=== PATIENT | female | born 1975 | race Caucasian/White ===

== ENCOUNTER 2017-09-20 11:25 | Emergency (ER) | payer OTHER ==
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
[2017-09-20 12:20] VITALS: BP 121/66
== END 2017-09-20 12:55 | disposition home or self-care (01) ==
LOC: UCCORT 11:25
DX: R51 Headache (principal); M62.838 Other muscle spasm; F17.210 Nicotine dependence, cigarettes, uncomplicated
CPT/HCPCS: 99212; G0463

== ENCOUNTER 2017-10-14 17:32 | Emergency (ER) | payer OTHER ==
[2017-10-14 20:07] VITALS: BP 109/64
[2017-10-14] MEDS ORDERED: Sulfamethox/Trimethoprim DS 800/160* TAB PO ONE (20:27)
[2017-10-14] MEDS ORDERED: Phenazopyridine TAB* 100 MG PO ONE (20:28)
--- NOTE | 2017-10-14 20:40 | UC ---
Complaint Female HPI - HPI Summary HPI Summary: TWO DAYS OF URINARY URGENCY, FREQUENCY, LOW BACK PAIN. NO ABDOMINAL PAIN. NO FEVER. - History Of Current Complaint Chief Complaint: UCGU Stated Complaint: URINARY Time Seen by Provider: 10/14/17 20:00 Hx Obtained From: Patient Hx Last Menstrual Period: 10/14/17 Onset/Duration: Gradual Onset, Lasting Days, Still Present Timing: Lasting Days Severity Initially: Mild Severity Currently: Moderate Character: Dull, Burning Aggravating Factor(s): Urination Associated Signs And Symptoms: Positive: Back Pain. Negative: Fever, Vaginal Bleeding/Discharge, Vaginal Discharge, Nausea, Vomiting(# Of Episodes =), Genital Swelling - Risk Factors Ectopic Risk Factor: Negative Ovarian Torsion Risk Factor: Negative - Allergies/Home Medications Allergies/Adverse Reactions: Allergies Allergy/AdvReac Type Severity Reaction Status Date / Time No Known Allergies Allergy Verified 10/14/17 20:07 Home Medications: Home Medications Acetaminophen [Acetaminophen Extra Stren] 1,000 mg PO PRN 10/14/17 [History] PMH/Surg Hx/FS Hx/Imm Hx Previously Healthy: Yes - Surgical History Surgical History: Yes Surgery Procedure, Year, and Place: LEAP proceduce X 2. T/A - Family History Known Family History: Positive: Cardiac Disease, Diabetes - Social History Occupation: Employed Full-time Lives: With Family Alcohol Use: None Substance Use Type: None Smoking Status (MU): Heavy Every Day Tobacco Smoker Type: Cigarettes Amount Used/How Often: 1/2 ppd Length of Time of Smoking/Using Tobacco: since age 8 Have You Smoked in the Last Year: Yes Cessation Counseling: Patient Advised to Stop - Immunization History Most Recent Influenza Vaccination: Not the Season Review of Systems Constitutional: Negative Skin: Negative Eyes: Negative ENT: Negative Respiratory: Negative Cardiovascular: Negative Gastrointestinal: Negative Genitourinary: Dysuria, Frequency, Urgency Motor: Negative Neurovascular: Negative Musculoskeletal: Negative Neurological: Negative Psychological: Negative Is Patient Immunocompromised?: No All Other Systems Reviewed And Are Negative: Yes Physical Exam Triage Information Reviewed: Yes Appearance: Well-Appearing, No Pain Distress, Well-Nourished Vital Signs: Initial Vital Signs Temp 97.8 F 10/14/17 19:59 Pulse 75 10/14/17 19:59 Resp 16 10/14/17 19:59 BP 109/64 10/14/17 19:59 Pulse Ox 99 10/14/17 19:59 Vital Signs Reviewed: Yes Eye Exam: Normal ENT Exam: Normal ENT: Positive: Normal ENT inspection, Hearing grossly normal, Pharynx normal Dental Exam: Normal Neck exam: Normal Neck: Positive: Supple, Nontender, No Lymphadenopathy Respiratory Exam: Normal Respiratory: Positive: Chest non-tender, Lungs clear, Normal breath sounds, No respiratory distress, No accessory muscle use Cardiovascular Exam: Normal Cardiovascular: Positive: RRR, No Murmur, Pulses Normal Abdomen Description: Positive: Nontender, No Organomegaly, CVA Tenderness (L) Musculoskeletal Exam: Normal Neurological Exam: Normal Psychological Exam: Normal Skin Exam: Normal Complaint Female Dx - Course Course Of Treatment: TRACE LEUKS, BUT TREATED FOR UTI BASED ON PATINET PRESENTATION. HOWEVER, PATIENT ADVISED TO SEEK IMMEDIATE EVALUATION AT EMERGENCY DEPARTMENT IF SYMPTOMS CONTINUE, IF BACK PAIN WORSENS, OR IF NEW SYMPTOMS DEVELOP - Differential Dx/Diagnosis Differential Diagnosis/HQI/PQRI: Renal Colic, Sexually Transmitted Disease, Ureteral Stone, Urinary Tract Infection Provider Diagnoses: URINARY TRACT INFECTION Discharge - Discharge Plan Condition: Stable Disposition: HOME Prescriptions: Phenazopyridine TAB* [Pyridium 100 mg TAB*] 100 mg PO TID PRN #12 tab PRN Reason: Pain Sulfamethox/Trimethoprim DS* [Bactrim DS 800/160 TAB*] 1 tab PO BID #10 tab Patient Education Materials: Urinary Tract Infection in Women (ED) Referrals: Luann Sun MD [Primary Care Provider] -
== END 2017-10-14 20:39 | disposition home or self-care (01) ==
LOC: UCCORT 17:32
DX: N39.0 Urinary tract infection, site not specified (principal); F17.210 Nicotine dependence, cigarettes, uncomplicated
CPT/HCPCS: 81003; 87086; 99212; A9270-GY; G0463

== ENCOUNTER 2017-11-12 14:36 | Emergency (ER) | payer OTHER ==
[2017-11-12 14:59] VITALS: BP 121/69
--- NOTE | 2017-11-12 15:10 | UC ---
Knee Pain HPI - HPI Summary HPI Summary: Patient has had swelling and pain in the left knee for the past 2 days. Unknown LESLIE, but pain with movment and at rest. - History of Current Complaint Chief Complaint: UCLowerExtremity Stated Complaint: LEFT KNEE PAIN Time Seen by Provider: 11/12/17 15:01 Hx Obtained From: Patient Hx Last Menstrual Period: 10/26/17 ?: No Onset/Duration: Sudden Onset, Lasting Days Severity Initially: Moderate Severity Currently: Moderate Character: Aching, Stiffness Aggravating Factor(s): Movement, Weight Bearing, Stairs Alleviating Factor(s): Nothing Associated Signs And Symptoms: Positive: Swelling - Allergies/Home Medications Allergies/Adverse Reactions: Allergies Allergy/AdvReac Type Severity Reaction Status Date / Time No Known Allergies Allergy Verified 11/12/17 14:58 PMH/Surg Hx/FS Hx/Imm Hx Previously Healthy: Yes - Surgical History Surgical History: Yes Surgery Procedure, Year, and Place: LEAP proceduce X 2. T/A - Family History Known Family History: Positive: Cardiac Disease, Diabetes - Social History Alcohol Use: Rare Substance Use Type: None Smoking Status (MU): Heavy Every Day Tobacco Smoker Type: Cigarettes Amount Used/How Often: 1/2 ppd Length of Time of Smoking/Using Tobacco: since age 8 Have You Smoked in the Last Year: Yes - Immunization History Most Recent Influenza Vaccination: Not the 2016/2017 Season Review of Systems Constitutional: Negative Skin: Negative Eyes: Negative ENT: Negative Respiratory: Negative Cardiovascular: Negative Gastrointestinal: Negative Genitourinary: Negative Motor: Negative Neurovascular: Negative Musculoskeletal: Arthralgia, Decreased ROM, Edema, Myalgia Neurological: Negative Psychological: Negative Is Patient Immunocompromised?: No All Other Systems Reviewed And Are Negative: Yes Physical Exam Triage Information Reviewed: Yes Appearance: Well-Appearing, Well-Nourished, Pain Distress Vital Signs: Initial Vital Signs Temp 100.3 F 11/12/17 14:48 Pulse 78 11/12/17 14:48 Resp 15 11/12/17 14:48 BP 121/69 11/12/17 14:48 Pulse Ox 99 11/12/17 14:48 Vital Signs Reviewed: Yes Eye Exam: Normal Eyes: Positive: Conjunctiva Clear ENT Exam: Normal Dental Exam: Normal Neck exam: Normal Respiratory Exam: Normal Respiratory: Positive: Chest non-tender, Lungs clear, Normal breath sounds Cardiovascular Exam: Normal Cardiovascular: Positive: RRR, No Murmur, Pulses Normal Abdominal Exam: Normal Abdomen Description: Positive: Nontender, No Organomegaly, Soft Bowel Sounds: Positive: Present Musculoskeletal Exam: Normal Neurological Exam: Normal Psychological Exam: Normal Skin Exam: Normal Knee Pain Course/Dx - Course Course Of Treatment: hx obtained, exam performed meds reviewed, xray obtained. - Differential Dx/Diagnosis Differential Diagnosis/HQI/PQRI: Contusion, Gout, Internal Derangement Of Knee, Patellofemoral Syndrome, Sprain, Strain Provider Diagnoses: knee pain and swelling, left Discharge - Discharge Plan Condition: Stable Disposition: HOME Patient Education Materials: Knee Pain (ED) Referrals: Luann Sun MD [Primary Care Provider] - Akash Chu MD [Medical Doctor] - Additional Instructions: 1. take the anti inflammatories as prescribed. 2. Use the maci wrap and keep your activities pain free for the next 5-7 days, if not improving I advise follow up with an orthopedic for further evaluation.
--- NOTE | 2017-11-12 15:44 | RAD ---
INDICATION: Left knee pain. TECHNIQUE: 4 views of the left knee were obtained. FINDINGS: The bones are in normal alignment. No joint effusion or fracture is seen. Joint spaces appear maintained. IMPRESSION: NO EVIDENCE FOR FRACTURE.
== END 2017-11-12 15:49 | disposition home or self-care (01) ==
LOC: UCCORT 14:36
DX: M25.562 Pain in left knee (principal); R22.42 Localized swelling, mass and lump, left lower limb; F17.210 Nicotine dependence, cigarettes, uncomplicated
CPT/HCPCS: 99212; G0463

== ENCOUNTER 2018-03-26 10:59 | Emergency (ER) | payer MEDICAID, OTHER ==
[2018-03-26 11:47] VITALS: BP 104/62
--- NOTE | 2018-03-26 12:14 | UC ---
[facility] Dental HPI - HPI Summary HPI Summary: 42 y/o female presents to the urgent care c/o RT side upper and lower toothache for the past 3 weeks. Pt reports she is currently schedule for 2 root canals in April/2018. Pt states her dentist was going to do it about 3 weeks ago, however the re-schedule her appt. Pain is 9/10 and worsen when she eats for the past 2 days. Pt has taken Advil PO to alleviate symptoms. Pt denies fever, DUMONT, trismus, SOB, chest pain, abdominal pain, N/V/D - History of Current Complaint Chief Complaint: UCDentalProblem Stated Complaint: DENTAL COMP Time Seen by Provider: 03/26/18 12:09 Hx Obtained From: Patient Hx Last Menstrual Period: states has been bleeding for 6 weeks. ?: No Onset/Duration: Gradual Onset, Lasting Weeks - 3 weeks, Still Present, Worse Since - 2 days Severity: Moderate Pain Intensity: 9 Pain Scale Used: 0-10 Numeric Aggravating Factor(s): Chewing Alleviating Factor(s): OTC Meds Related History: Previous Dental Care on Same Tooth, Swelling - Allergies/Home Medications Allergies/Adverse Reactions: Allergies Allergy/AdvReac Type Severity Reaction Status Date / Time No Known Allergies Allergy Verified 03/26/18 11:44 PMH/Surg Hx/FS Hx/Imm Hx Previously Healthy: Yes - Pt denies PMHX - Surgical History Surgical History: Yes Surgery Procedure, Year, and Place: LEAP proceduce X 2. T/A - Family History Known Family History: Positive: Cardiac Disease, Diabetes - Social History Occupation: Employed Full-time Lives: With Family Alcohol Use: None Substance Use Type: None Smoking Status (MU): Heavy Every Day Tobacco Smoker Type: Cigarettes Amount Used/How Often: 1/2 ppd Length of Time of Smoking/Using Tobacco: since age 8 Have You Smoked in the Last Year: Yes - Immunization History Most Recent Influenza Vaccination: Not the 2017/2017 Season Review of Systems Constitutional: Negative Skin: Negative Eyes: Negative ENT: Dental Pain - RT upper and lower jaw pain Respiratory: Negative Cardiovascular: Negative Gastrointestinal: Negative Genitourinary: Negative Motor: Negative Neurovascular: Negative Musculoskeletal: Negative Neurological: Negative Psychological: Negative Is Patient Immunocompromised?: No All Other Systems Reviewed And Are Negative: Yes Physical Exam - Summary Physical Exam Summary: Vital Signs Reviewed: Yes General: well developed. well nourished female sitting in the examining table w/ o any apparent distress Eyes: Positive: Conjunctiva Clear - PERRLA, EOMI, fundi grossly normal ENT: Positive: Normal ENT inspection, Hearing grossly normal, Pharyngeal erythema, TMs normal, Uvula midline. Negative: Tonsillar swelling, Tonsillar exudate, Trismus Dental: Positive: Percussion Tenderness @ - molar 3 and 30, Gross Decay/Caries @ - molar 3,and 30 Abscess @ - molar 3, Cervical Lymphadenopathy - B/L anterior , Neck: Positive: Supple, Nontender Respiratory: Positive: Chest non-tender, Lungs clear, Normal breath sounds, No respiratory distress Cardiovascular: Positive: RRR, No Murmur, Pulses Normal, Brisk Capillary Refill Abdomen Description: Positive: Nontender, No Organomegaly, Soft. Negative: CVA Tenderness (R), CVA Tenderness (L) Bowel Sounds: Positive: Present Musculoskeletal: Positive: Strength Intact, ROM Intact, No Edema Neurological Exam: Normal Psychological Exam: Normal Skin Exam: Normal Triage Information Reviewed: Yes Vital Signs: Initial Vital Signs Temp 98 F 03/26/18 11:40 Pulse 54 03/26/18 11:40 Resp 17 03/26/18 11:40 BP 104/62 03/26/18 11:40 Pulse Ox 100 03/26/18 11:40 Dental Complaint Course/Dx - Course Course Of Treatment: 42 y/o female presents to the urgent care c/o RT side upper and lower toothache for the past 3 weeks. Pt reports she is currently schedule for 2 root canals in April/2018. Pt states her dentist was going to do it about 3 weeks ago, however the re-schedule her appt. Pain is 9/10 and worsen when she eats for the past 2 days. Pt has taken Advil PO to alleviate symptoms. Pt denies fever, DUMONT, trismus, SOB, chest pain, abdominal pain, N/V/D. Hx obtained. Pt w/ Percussion Tenderness @ - molar 3 and 30, Gross Decay/Caries @ - molar 3,and 30, mild Abscess @ - molar 3 on examination. Pt given viscous Lidocaine and Toradol IM inj at the clinic to alleviate symptoms. pt tolerated well IM inj and Pain decrease Pt Rx Amoxicillin PO and Naproxen PO for pain. Pt strongly advised to f/u with Dentist as soon as possible further evaluation and treatment. Pt understood and agreed with plan of care. Left the clinic ambulating. - Differential Dx/Diagnosis Differential Diagnosis/Dx: Dental Abscess, Dental Caries, Fractured Tooth, Gingivitis, Odontogenic Pain, Peridontic Disease Provider Diagnoses: 1- Dental abscess and molar 3. 2- Dental pain at molar 3 and 30 Discharge - Sign-Out/Discharge Documenting (check all that apply): Discharge/Admit/Transfer - D/C home - Discharge Plan Condition: Stable Disposition: HOME Prescriptions: Amoxicillin PO (*) [Amoxicillin 500 MG CAP*] 500 mg PO TID #30 cap Naproxen TAB* [Naprosyn 250 mg TAB*] 250 mg PO Q8H PRN #30 tab PRN Reason: dental pain Patient Education Materials: Dental Abscess (ED), Toothache (ED) Forms: *Work Release Referrals: Luann Sun MD [Primary Care Provider] - 2 Days Additional Instructions: 1-Please take full course of antibiotic to avoid resistance. 2- Take Naproxen as instructed after meals to alleviate pain and swelling. 3- F/u with your Dentist as soon as possible for further treatment. 4- If symptoms do not improve or worsen please return to the urgent care or f/u with your PCP for further evaluation and treatment - Billing Disposition and Condition Condition: STABLE Disposition: HOME
[2018-03-26] MEDS ORDERED: Ketorolac INJ* 30 MG/ML 1 ML VIAL IM ONE (12:22)
[2018-03-26] MEDS ORDERED: Lidocaine 2% VISCOUS* 15 ML UDC SWISH SPIT ONE (12:23)
== END 2018-03-26 12:41 | disposition home or self-care (01) ==
LOC: UCCORT 10:59
DX: K04.7 Periapical abscess without sinus (principal); F17.210 Nicotine dependence, cigarettes, uncomplicated
CPT/HCPCS: 96372; 99212; G0463; J1885

== ENCOUNTER 2018-04-25 14:20 | Emergency (ER) | payer MEDICAID ==
[2018-04-25 15:07] VITALS: BP 94/53
--- NOTE | 2018-04-25 15:18 | UC ---
Dental HPI - HPI Summary HPI Summary: Pt c/o worsening dental pain right upper molar and right lower molar. Pt has long history of dental caries and abscess and is scheduled to begin root canal procedure on 04/27 at [facility] - History of Current Complaint Hx Obtained From: Patient Hx Last Menstrual Period: 04/07/18 ?: No Onset/Duration: Gradual Onset, Lasting Days, Lasting Weeks, Still Present, Worse Since - onset Severity: Severe Pain Intensity: 8 Aggravating Factor(s): Heat, Cold, Chewing Alleviating Factor(s): Nothing Related History: Previous Dental Care on Same Tooth <Lizeth Rojas NP - Last Filed: 04/25/18 15:38> <Hood Cain - Last Filed: 04/25/18 18:27> - History of Current Complaint Chief Complaint: UCDentalProblem Stated Complaint: DENTAL Time Seen by Provider: 04/25/18 14:55 - Allergies/Home Medications Allergies/Adverse Reactions: Allergies Allergy/AdvReac Type Severity Reaction Status Date / Time No Known Allergies Allergy Verified 04/25/18 14:59 Home Medications: Home Medications Ibuprofen TAB* [Advil TAB*] 1,000 mg PO Q6H PRN 04/25/18 [History Confirmed ] PMH/Surg Hx/FS Hx/Imm Hx Previously Healthy: Yes - Surgical History Surgical History: Yes Surgery Procedure, Year, and Place: LEAP proceduce X 2. T/A - Family History Known Family History: Positive: Cardiac Disease, Diabetes - Social History Occupation: Employed Full-time Lives: With Family Alcohol Use: None Substance Use Type: None Smoking Status (MU): Heavy Every Day Tobacco Smoker Type: Cigarettes Amount Used/How Often: 1/2 ppd Length of Time of Smoking/Using Tobacco: since age 8 Have You Smoked in the Last Year: Yes - Immunization History Most Recent Influenza Vaccination: Not the 2017/2017 Season <Lizeth Rojas NP - Last Filed: 04/25/18 15:38> Review of Systems Constitutional: Negative Skin: Negative Eyes: Negative ENT: Dental Pain Respiratory: Negative Cardiovascular: Negative Gastrointestinal: Negative Genitourinary: Negative Motor: Negative Neurovascular: Negative Musculoskeletal: Negative Neurological: Negative Psychological: Negative Is Patient Immunocompromised?: No All Other Systems Reviewed And Are Negative: Yes <Lizeth Rojas NP Last Filed: 04/25/18 15:38> Physical Exam Triage Information Reviewed: Yes Appearance: Well-Appearing Vital Signs: Initial Vital Signs Temp 99.4 F 04/25/18 15:02 Pulse 78 04/25/18 15:02 Resp 16 04/25/18 15:02 BP 94/53 04/25/18 15:02 Pulse Ox 99 04/25/18 15:02 Vital Signs Reviewed: Yes Eye Exam: Normal ENT Exam: Normal Dental: Positive: Percussion Tenderness @, Gross Decay/Caries @, Dental Fracture @ Neck exam: Normal Respiratory Exam: Normal Respiratory: Positive: No respiratory distress Musculoskeletal Exam: Normal Neurological Exam: Normal Psychological Exam: Normal Skin Exam: Normal <Lizeth Rojas NP - Last Filed: 04/25/18 15:38> Vital Signs: Initial Vital Signs Temp 99.4 F 04/25/18 15:02 Pulse 78 04/25/18 15:02 Resp 16 04/25/18 15:02 BP 94/53 04/25/18 15:02 Pulse Ox 99 04/25/18 15:02 <Hood Cain - Last Filed: 04/25/18 18:27> Dental Complaint Course/Dx - Course Course Of Treatment: Pt has an appointment on 04/27/18 with [facility] for root canal and is getting referral to oral surgeon for wisdom teeth extraction. - Differential Dx/Diagnosis Differential Diagnosis/Dx: Dental Abscess, Fractured Tooth Provider Diagnoses: fractured tooth. dental caries <Lizeth Rojas NP - Last Filed: 04/25/18 15:38> Discharge - Sign-Out/Discharge Documenting (check all that apply): Discharge/Admit/Transfer - Billing Disposition and Condition Condition: STABLE Disposition: Home <Lizeth Rojas NP Last Filed: 04/25/18 15:38> - Billing Disposition and Condition Condition: STABLE Disposition: Home <Hood Cain - Last Filed: 04/25/18 18:27> - Discharge Plan Condition: Stable Disposition: HOME Prescriptions: Clindamycin Cap(NF) [Clindamycin Cap 300 mg Cap(NF)] 300 mg PO Q8H #21 cap Lidocaine 2% VISCOUS* [Xylocaine 2% Viscous*] 15 ml SWISH SPIT Q4H PRN #1 btl PRN Reason: Pain Patient Education Materials: Toothache (ED) Referrals: Luann Sun MD [Primary Care Provider] - Additional Instructions: Please keep your appointment with [facility] for this 04/27/18 at 9 am. Please follow up with your Dental care provider for any further management of your dental pain. Per institutional requirements, I have reviewed the chart, however, I was not consulted specifically or made aware of this patient by the above midlevel provider. I did not personally evaluate, interact with , or disposition this patient.
== END 2018-04-25 15:31 | disposition home or self-care (01) ==
LOC: UCCORT 14:20
DX: S02.5XXA Fracture of tooth (traumatic), initial encounter for closed fracture (principal); K02.9 Dental caries, unspecified; F17.210 Nicotine dependence, cigarettes, uncomplicated
CPT/HCPCS: 99212; G0463

== ENCOUNTER 2018-07-24 19:16 | Emergency (ER) | payer MEDICAID, OTHER ==
--- NOTE | 2018-07-24 20:29 | UC ---
Dental HPI - HPI Summary HPI Summary: 42 yo female presents with wisdom teeth pain. She tells me she knows that she has a wisdom tooth coming in crooked in the right upper mouth. Has seen her dentist for this and was told she needs surgery by an oral surgeon - she is in the process of saving money for this. She takes tylenol and ibuprofen for the pain, but lately has not been helping. She left work today due to pain and is requesting a work note. She is able to eat and drink. Denies headache, fever, or chills. - History of Current Complaint Stated Complaint: ORAL CONCERN Time Seen by Provider: 07/24/18 20:28 Hx Obtained From: Patient Hx Last Menstrual Period: 04/07/18 Onset/Duration: Gradual Onset Severity: Severe Pain Intensity: 7 Pain Scale Used: 0-10 Numeric - Allergies/Home Medications Allergies/Adverse Reactions: Allergies Allergy/AdvReac Type Severity Reaction Status Date / Time No Known Allergies Allergy Verified 07/24/18 20:42 PMH/Surg Hx/FS Hx/Imm Hx - Additional Past Medical History Additional PMH: None - Surgical History Surgical History: Yes Surgery Procedure, Year, and Place: LEAP proceduce X 2. T/A - Family History Known Family History: Positive: Cardiac Disease, Diabetes - Social History Occupation: Employed Full-time Lives: With Family Alcohol Use: None Substance Use Type: None Smoking Status (MU): Heavy Every Day Tobacco Smoker Type: Cigarettes Amount Used/How Often: 1/2 ppd Length of Time of Smoking/Using Tobacco: since age 8 Have You Smoked in the Last Year: Yes - Immunization History Most Recent Influenza Vaccination: Not the 2017/2017 Season Review of Systems Constitutional: Negative Skin: Negative Eyes: Negative ENT: Dental Pain Respiratory: Negative Cardiovascular: Negative Neurovascular: Negative Neurological: Negative Psychological: Negative All Other Systems Reviewed And Are Negative: Yes Physical Exam - Summary Physical Exam Summary: GENERAL: Hyperverbal. WDWN. No pain distress. SKIN: No rashes, sores, lesions, or open wounds. HEENT: Head: AT/NC Nose: NTTP maxillary and frontal sinus. Throat: Posterior oropharynx without exudates, erythema, or tonsillar enlargement. Uvula midline. NECK: Supple. Nontender. No lymphadenopathy. CHEST: CTAB. No r/r/w. No accessory muscle use. Breathing comfortably and in no distress. CV: RRR. Without m/r/g. Pulses intact. Cap refill <2seconds NEURO: Alert. PSYCH: Age appropriate behavior. Triage Information Reviewed: Yes Vital Signs: Vital Signs: Temp Pulse Resp BP Pulse Ox 98.8 F 81 16 111/49 99 07/24/18 20:36 07/24/18 20:36 07/24/18 20:36 07/24/18 20:36 07/24/18 20:36 Vital Signs Reviewed: Yes Dental: Positive: Percussion Tenderness @ - Tooth area #1 and #2, Gross Decay/ Caries @ - Throughout. Negative: Cellulitis @, Cervical Lymphadenopathy Dental Complaint Course/Dx - Course Course Of Treatment: Toothache. We had a long conversation regarding pain control. I offerred her tylenol #3 or tramadol, but pt says she cannot take narcotics because they make her very sick. She has been taking tylenol and ibuprofen with little relief. Adivsed her to try oragel and lidocaine OTC. Will rx for meloxicam as this is a bit longer acting that ibuprofen and may provide her extended relief. - Differential Dx/Diagnosis Provider Diagnoses: Toothache Discharge - Sign-Out/Discharge Documenting (check all that apply): Patient Departure All imaging exams completed and their final reports reviewed: No Studies - Discharge Plan Condition: Stable Disposition: HOME Prescriptions: Meloxicam 7.5 mg PO BID PRN #30 tablet PRN Reason: Pain Patient Education Materials: Toothache (ED) Forms: *Work Release Referrals: Luann Sun MD [Primary Care Provider] - Additional Instructions: If you develop a fever, shortness of breath, chest pain, new or worsening symptoms - please call your PCP or go to the ED. 1) Please schedule a follow up appointment with the oral surgeon as soon as possible 2) Do not take ibuprofen or motrin with the meloxicam as these medications may interact - Billing Disposition and Condition Condition: STABLE Disposition: Home
[2018-07-24 20:42] VITALS: BP 111/49
--- NOTE | 2018-07-25 12:06 | UC ---
Discharge - Sign-Out/Discharge Documenting (check all that apply): Post-Discharge Follow Up All imaging exams completed and their final reports reviewed: No Studies - Discharge Plan Condition: Stable Disposition: HOME Prescriptions: Meloxicam 7.5 mg PO BID PRN #30 tablet PRN Reason: Pain Patient Education Materials: Toothache (ED) Forms: *Work Release Referrals: Luann Sun MD [Primary Care Provider] - Additional Instructions: If you develop a fever, shortness of breath, chest pain, new or worsening symptoms - please call your PCP or go to the ED. 1) Please schedule a follow up appointment with the oral surgeon as soon as possible 2) Do not take ibuprofen or motrin with the meloxicam as these medications may interact - Billing Disposition and Condition Condition: STABLE Disposition: Home
== END 2018-07-24 20:58 | disposition home or self-care (01) ==
LOC: UCCORT 19:16
DX: K08.89 Other specified disorders of teeth and supporting structures (principal); F17.210 Nicotine dependence, cigarettes, uncomplicated
CPT/HCPCS: 99212; G0463